=== PATIENT | male | born 2000 | race Caucasian/White ===

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

== ENCOUNTER → 2021-10-06 | Outpatient (REF) | payer OTHER ==
[~2021-10-06] MED LIST: CLAR10TA7 PO; IBUP-1720 PO
[2021-10-06 19:08] LABS: GC DNA AMPLIFICATION NEGATIVE (NEGATIVE)
== END ==
LOC: M LAB REF 16:55
PROVIDERS: ATTEND Pediatrics
DX: Z00.121 Encounter for routine child health examination with abnormal findings (principal)